=== PATIENT | male | born 1965 | race Caucasian/White ===

== ENCOUNTER 2017-12-08 16:50 | Emergency (ER) | payer MEDICAID ==
[~2017-12-08] VITALS: Ht 190.5 cm; Wt 245.4 kg
[~2017-12-08 16:50] MED LIST: CANE-100; COU5T PO; CYCL-1 PO; GABA-338 PO; INSU100V13 SQ; INSU100V9 SQ; METF500T PO; NAPR-56 PO; TRAM100T13 PO; TRAM50TA2 PO; ZIPR20CA2 PO
[2017-12-08] MEDS ORDERED: TRAM50TA2 PO (17:18)
[2017-12-08 17:31] VITALS: BP 155/81
== END 2017-12-08 17:32 | disposition home or self-care (01) ==
LOC: ER 16:51
DX: G89.29 Other chronic pain (principal); M25.572 Pain in left ankle and joints of left foot; I10 Essential (primary) hypertension; E11.9 Type 2 diabetes mellitus without complications; Z86.718 Personal history of other venous thrombosis and embolism; Z79.84 Long term (current) use of oral hypoglycemic drugs; Z79.4 Long term (current) use of insulin; Z98.890 Other specified postprocedural states; Z56.0 Unemployment, unspecified; Z79.01 Long term (current) use of anticoagulants; Z79.899 Other long term (current) drug therapy
CPT/HCPCS: 99283

== ENCOUNTER → 2017-12-16 | Emergency (ER) | payer MEDICAID ==
[~2017-12-16] VITALS: Ht 190.5 cm; Wt 245.4 kg
[~2017-12-16] MED LIST changes: -NAPR-56 PO
[2017-12-16 16:00] VITALS: BP 127/85
== END | disposition home or self-care (01) ==
LOC: ER 15:06
DX: M25.572 Pain in left ankle and joints of left foot (principal); G89.29 Other chronic pain; I10 Essential (primary) hypertension; E11.9 Type 2 diabetes mellitus without complications; Z86.718 Personal history of other venous thrombosis and embolism; Z79.4 Long term (current) use of insulin; Z79.01 Long term (current) use of anticoagulants
CPT/HCPCS: 99281

== ENCOUNTER 2017-12-18 17:15 | Emergency (ER) | payer MEDICAID ==
[~2017-12-18] VITALS: Ht 190.5 cm; Wt 245.0 kg
[2017-12-18 17:48] VITALS: BP 123/97
== END 2017-12-18 17:50 | disposition home or self-care (01) ==
LOC: ER 17:15
DX: G89.29 Other chronic pain (principal); M25.572 Pain in left ankle and joints of left foot; I10 Essential (primary) hypertension; E11.9 Type 2 diabetes mellitus without complications; Z86.718 Personal history of other venous thrombosis and embolism; Z98.890 Other specified postprocedural states; Z79.4 Long term (current) use of insulin; Z79.01 Long term (current) use of anticoagulants; Z79.899 Other long term (current) drug therapy
CPT/HCPCS: 99281

== ENCOUNTER 2017-12-22 05:27 | Emergency (ER) | payer MEDICAID | END 2017-12-22 05:39 | disposition left against medical advice (07) | LOC: ER 05:27 | DX: M25.572 Pain in left ankle and joints of left foot (principal); Z53.21 Procedure and treatment not carried out due to patient leaving prior to being seen by health care provider ==

== ENCOUNTER 2017-12-22 16:34 | Emergency (ER) | payer MEDICAID ==
[~2017-12-22] VITALS: Ht 190.5 cm; Wt 245.4 kg
[2017-12-22 17:39] VITALS: BP 141/80
== END 2017-12-22 17:41 | disposition home or self-care (01) ==
LOC: ER 16:34
DX: G89.29 Other chronic pain (principal); M25.572 Pain in left ankle and joints of left foot; I89.0 Lymphedema, not elsewhere classified; I10 Essential (primary) hypertension; E11.9 Type 2 diabetes mellitus without complications; Z76.5 Malingerer [conscious simulation]; Z86.718 Personal history of other venous thrombosis and embolism; Z98.890 Other specified postprocedural states; Z56.0 Unemployment, unspecified; Z60.2 Problems related to living alone; Z79.4 Long term (current) use of insulin; Z79.84 Long term (current) use of oral hypoglycemic drugs; Z79.01 Long term (current) use of anticoagulants; Z79.899 Other long term (current) drug therapy
CPT/HCPCS: 99281